=== PATIENT | male | born 1985 | race Caucasian/White ===

== ENCOUNTER 2021-06-15 00:40 | Emergency (ER) | payer OTHER, SELFPAY ==
[2021-06-15 00:49] VITALS: BP 130/80; BP 145/91; PULSE 71; PULSE 72; RESP 16; TEMP 36.8; O2SAT 97; O2SAT 98; BMI 25.1
[2021-06-15 01:10] LABS: MANUAL DIFF FLAG NO
[2021-06-15] MEDS: ondansetron HCL 4 MG/2 ML VIAL IVPUSH (01:10)
[2021-06-15 01:11] LABS: Basophils Percent Auto 0.4 % (0-2); Hematocrit 40.9 % (42-52); Hemoglobin 14.4 g/dl (14.0-18.0); Imm Gran Abs Auto 0.03 X10*3/uL (0.00-0.03); Imm Gran Pct Auto 0.4 % (0.0-0.4); Lymphocytes Absolute Auto 0.6 X10*3/uL (1.2-4.9); Lymphocytes Percent Auto 8.6 % (20-40); Mean Corpuscular HGB Conc 35.2 g/dl (31.0-36.0); Mean Corpuscular Hemoglobin 30.4 pg (27.0-33.0); Mean Corpuscular Volume 86.5 fL (80-98); Mean Platelet Volume 9.5 fL (9.4-12.4); Monocytes Absolute Auto 0.4 X10*3/uL (0.1-1.2); Monocytes Percent Auto 4.7 % (2-11); Neutrophils Absolute Auto 6.4 X10*3/uL (2.0-8.3); Neutrophils Percent Auto 85.9 % (45-73); Platelet Count 172 X10*3/uL (160-400); Red Blood Count 4.73 X10*6/uL (4.60-5.80); White Blood Count 7.5 X10*3/uL (4.8-10.8)
--- NOTE | 2021-06-15 01:21 | PC.NURSE ---
IV inserted. Labs drawn. Seizure pads in place. MD aware of elevated CIWA score (18). Awaiting primary MD avila.
[2021-06-15 01:26] LABS: Ethanol < 10 mg/dL
[2021-06-15 01:31] LABS: Alanine Aminotransferase 30 U/L (0-40); Albumin Level 4.5 g/dL (3.5-5.0); Alkaline Phosphatase 74 U/L (39-117); Anion Gap 19 (12-20); Aspartate Amino Transferase 50 U/L (5-37); Bilirubin Direct 0.5 mg/dL (0.0-0.5); Bilirubin Total 1.1 mg/dL (0.0-1.0); Blood Urea Nitrogen 10 mg/dL (9-16); Calcium 9.5 mg/dL (8.4-10.2); Carbon Dioxide 24 mmol/L (22-29); Chloride 106 mmol/L (96-108); Creatinine Clr Calc Pharmacy 120.1; Estimated Glomerular Filt Rate > 60; Glucose Random 131 mg/dL (60-115); Lipase 15 U/L (8-78); Potassium 4.5 mmol/L (3.3-5.1); Sodium 144 mmol/L (135-145); Total Protein 7.5 g/dL (6.5-8.0)
[2021-06-15 01:33] LABS: Lactic Acid 1.9 mmol/L (0.5-2.0)
--- NOTE | 2021-06-15 01:37 | PC.NURSE ---
at bedside for primary eval. Pt reporting to MD that his severe tremors are normal for him. Per pt, pt is concerned that his s/sx are r/t recent addition of Zoloft to daily medications. Pt reports being on Zoloft for 3 weeks now, notified provider of feeling unwell and was advised to go to the ER for an eval. Per MD, plan for Covid swab and to await lab results.
--- NOTE | 2021-06-15 01:49 | ED.NAVMDI ---
HPI - Nausea/Vomiting/Diarrhea General Chief complaint: Nausea/Vomiting/Diarrhea Stated complaint: NAUSEA Time Seen by Provider: 06/15/21 01:09 Source: patient Mode of arrival: EMS History of Present Illness HPI Narrative: 35-year-old male who is brought in by EMS for complaints anxiety, nausea, and overall not feeling well due to what he feels maybe his Zoloft prescription which he has been taking for 3 weeks. Patient states he used to take Ativan but it has been over 10 years and states that he does drink alcohol in his last drink was approximately 1 week ago. As patient was noted to be significantly tremulous on arrival he was questioned regarding this and states that it is familial and that his trembling is something that he has at baseline as well as his noted speech pattern. He states that he has abstained from alcohol before and has never suffered from seizures. At this time he denies any headache, tactile disturbances, visual disturbances, dizziness, shortness of breath, chest pain/palpitations, fever/chills and denies any diarrhea. Related Data Allergies Allergy/AdvReac Type Severity Reaction Status Date / Time No Known Allergies Allergy Verified 06/15/21 00:58 Review of Systems Review of Systems: Pertinent positives and negatives as stated in HPI 10 point review of systems is otherwise negative. PMFSH Past Medical History Source: nursing notes reviewed Social History Social History Advance Directives: No Advance Directives Information Provided: No Physical Exam Vital Signs: Vital Signs: Last Vital Signs Temp 98.3 F 06/15/21 00:49 Pulse 81 06/15/21 03:42 Resp 16 06/15/21 03:42 BP 147/85 H 06/15/21 03:42 Pulse Ox 97 06/15/21 03:42 Body Mass Index 25.1 VITAL SIGNS: Reviewed. GENERAL: Well developed, well nourished, in no acute distress. HEAD: Normocephalic/atraumatic EYES: PERRLA, EOMI intact without pain, no nystagmus EARS: Ext canals without abnormality, TMs non-bulging and non-erythematous NOSE: Nares patent bilateral OROPHARYNX: no oral lesions noted, posterior pharynx clear LUNGS: Normal breath sounds. No adventitious sounds or accessory muscle use. SpO2<97> CARDIOVASCULAR: Regular rate and rhythm without noted murmurs ABDOMEN: Soft, non-tender, non-distended with bowel sounds. MUSCULOSKELETAL: No tenderness, deformities, or effusions noted on gross inspection. EXTREMITIES: No cyanosis, clubbing or edema. SKIN: Inspection of the skin reveals no rashes, diaphoresis NEUROLOGIC: Alert and oriented x 4. Strength and sensation to light touch were grossly intact x 4, patient is noted to be significantly tremulous, there is no nystagmus Course Course Course Narrative: 35-year-old male with history and clinical presentation suggestive of anxiety and possible medication related symptoms, will evaluate for electrolyte/infection/anemia etiologies. Review of all investigations otherwise negative for acute findings. All results were discussed with the patient at bedside and he was encouraged to follow-up with his primary care provider. Patient is noted to tolerate oral intake without difficulty. MDM - Nausea/Vomiting/Diarrhea Lab Data Result diagrams: 06/15/21 01:03 06/15/21 01:03 Labs: Lab Results 06/15/21 06/15/21 06/15/21 Range/Units 01:03 01:03 01:03 WBC 7.5 (4.8-10.8) X10*3/uL RBC 4.73 (4.60-5.80) X10*6/uL Hgb 14.4 (14.0-18.0) g/dl Hct 40.9 L (42-52) % MCV 86.5 (80-98) fL MCH 30.4 (27.0-33.0) pg MCHC 35.2 (31.0-36.0) g/dl RDW 12.0 (11.0-16.0) % Plt Count 172 (160-400) X10*3/uL MPV 9.5 (9.4-12.4) fL Immature Gran % (Auto) 0.4 (0.0-0.4) % Neut % (Auto) 85.9 H (45-73) % Lymph % (Auto) 8.6 L (20-40) % [place] % (Auto) 4.7 (2-11) % Eos % (Auto) 0.0 (0-4) % Baso % (Auto) 0.4 (0-2) % Lymph # (Auto) 0.6 L (1.2-4.9) X10*3/uL [place] # (Auto) 0.4 (0.1-1.2) X10*3/uL Eos # (Auto) 0.0 (0.0-0.4) X10*3/uL Baso # (Auto) 0.0 (0.0-0.2) X10*3/uL Abs Immat Gran (auto) 0.03 (0.00-0.03) X10*3/uL Absolute Neuts (auto) 6.4 (2.0-8.3) X10*3/uL Absolute Nucleated RBC 0.000 (0.0-0.012) X10*3/uL Nucleated RBC % (auto) 0.0 (0.0-0.2) /100WBC Sodium 144 (135-145) mmol/L Potassium 4.5 (3.3-5.1) mmol/L Chloride 106 (96-108) mmol/L Carbon Dioxide 24 (22-29) mmol/L Anion Gap 19 (12-20) BUN 10 (9-16) mg/dL Creatinine 0.85 (0.5-1.4) mg/dL Estim Creat Clear Calc 120.1 Estimated GFR > 60 Random Glucose 131 H (60-115) mg/dL Lactic Acid (0.5-2.0) mmol/L Calcium 9.5 (8.4-10.2) mg/dL Total Bilirubin 1.1 H (0.0-1.0) mg/dL Direct Bilirubin 0.5 (0.0-0.5) mg/dL AST 50 H (5-37) U/L ALT 30 (0-40) U/L Alkaline Phosphatase 74 (39-117) U/L Total Protein 7.5 (6.5-8.0) g/dL Albumin 4.5 (3.5-5.0) g/dL Lipase 15 (8-78) U/L Urine Color Urine Appearance Urine pH (5.0-8.0) Ur Specific [place] (1.005-1.025) Urine Protein (NEG-TRACE) MG/DL Urine Glucose (UA) (NEG) MG/DL Urine Ketones (NEG) MG/DL Urine Blood (NEG) Urine Nitrite (NEG) Ur Leukocyte Esterase (NEG) Ethyl Alcohol < 10 mg/dL COVID-19 ([facility]IA) (Negative) COVID-19 Clin Com 06/15/21 06/15/21 06/15/21 Range/Units 01:14 01:45 04:52 WBC (4.8-10.8) X10*3/uL RBC (4.60-5.80) X10*6/uL Hgb (14.0-18.0) g/dl Hct (42-52) % MCV (80-98) fL MCH (27.0-33.0) pg MCHC (31.0-36.0) g/dl RDW (11.0-16.0) % Plt Count (160-400) X10*3/uL MPV (9.4-12.4) fL Immature Gran % (Auto) (0.0-0.4) % Neut % (Auto) (45-73) % Lymph % (Auto) (20-40) % [place] % (Auto) (2-11) % Eos % (Auto) (0-4) % Baso % (Auto) (0-2) % Lymph # (Auto) (1.2-4.9) X10*3/uL [place] # (Auto) (0.1-1.2) X10*3/uL Eos # (Auto) (0.0-0.4) X10*3/uL Baso # (Auto) (0.0-0.2) X10*3/uL Abs Immat Gran (auto) (0.00-0.03) X10*3/uL Absolute Neuts (auto) (2.0-8.3) X10*3/uL Absolute Nucleated RBC (0.0-0.012) X10*3/uL Nucleated RBC % (auto) (0.0-0.2) /100WBC Sodium (135-145) mmol/L Potassium (3.3-5.1) mmol/L Chloride (96-108) mmol/L Carbon Dioxide (22-29) mmol/L Anion Gap (12-20) BUN (9-16) mg/dL Creatinine (0.5-1.4) mg/dL Estim Creat Clear Calc Estimated GFR Random Glucose (60-115) mg/dL Lactic Acid 1.9 (0.5-2.0) mmol/L Calcium (8.4-10.2) mg/dL Total Bilirubin (0.0-1.0) mg/dL Direct Bilirubin (0.0-0.5) mg/dL AST (5-37) U/L ALT (0-40) U/L Alkaline Phosphatase (39-117) U/L Total Protein (6.5-8.0) g/dL Albumin (3.5-5.0) g/dL Lipase (8-78) U/L Urine Color YELLOW Urine Appearance CLEAR Urine pH 6.0 (5.0-8.0) Ur Specific [place] >= 1.030 H (1.005-1.025) Urine Protein 1+ H (NEG-TRACE) MG/DL Urine Glucose (UA) NEG (NEG) MG/DL Urine Ketones 15 (NEG) MG/DL Urine Blood NEG (NEG) Urine Nitrite NEG (NEG) Ur Leukocyte Esterase NEG (NEG) Ethyl Alcohol mg/dL COVID-19 (KIA) Negative (Negative) COVID-19 Clin Com See Note Discharge Plan Discharge Clinical Impression: Anxiety, Gastroenteritis Patient Disposition: Home, Self-Care Instructions: Gastroenteritis (ED), Anxiety (ED) Additional Instructions: Please follow-up with your primary care provider today for re-evaluation and further outpatient management. Return to the ER for acute worsening of symptoms.
[2021-06-15 02:22] LABS: COVID-19 Test Negative (Negative); IDNOW Serial# 9DD0AD1C
[2021-06-15 03:42] VITALS: BP 147/85; PULSE 81; RESP 16; O2SAT 97
--- NOTE | 2021-06-15 04:27 | PC.NURSE ---
PT is tolerating solid foods and liquids by mouth. PT is having difficulty providing urine sample.
--- NOTE | 2021-06-15 04:42 | PC.NURSE ---
Pt ambulating to the bathroom to provide urine sample with assistance by MAURI Pacheco.
[2021-06-15 05:03] LABS: Appearance Urine CLEAR; Color Urine YELLOW; Glucose Urine UA NEG (NEG); Leukocyte Esterase Urine NEG (NEG); Nitrite Urine NEG (NEG); Specific Gravity - Urine >= 1.030 (1.005-1.025); UACC Culture Trigger NO; Urine Blood NEG (NEG); Urine Ketones 15 MG/DL (NEG); Urine Protein 1+ MG/DL (NEG-TRACE)
[2021-06-15 05:23] LABS: Calcium Oxalate Crystals Urine TRACE /LPF; Mucus Urine 3+ /LPF; RBC Urine 0-2 /HPF (0); Renal Epithelial Cells Urine TRACE /LPF; Squamous Epithelial Cell Urine 1+ /LPF; WBC Urine 0-2 /HPF (0-4)
[2021-06-15 05:24] LABS: Oval Fat Bodies Urine NOTED
[2021-06-15 05:40] VITALS: BP 160/78; PULSE 90; RESP 18; O2SAT 97
== END 2021-06-15 05:42 | disposition home or self-care (01) ==
PROVIDERS: Emergency Provider Student in an Organized Health Care Education/Training Program
DX: K52.9 Noninfective gastroenteritis and colitis, unspecified (principal); F41.9 Anxiety disorder, unspecified; Z79.899 Other long term (current) drug therapy; Z20.822 Contact with and (suspected) exposure to COVID-19
CPT/HCPCS: 36415; 80048; 80076; 81001; 81003; 82077; 83605; 83690; 85025; 87635; 96374; 99284; J2405

== ENCOUNTER 2022-12-12 10:43 | Observation (INO) | payer OTHER, SELFPAY ==
--- NOTE | ~2022-12-12 | US_ITS ---
EXAMINATION: US ABDOMEN LIMITED CLINICAL INFORMATION: Pancreatitis.. COMPARISON: CT abdomen and pelvis 12/12/2022 TECHNIQUE: Real-time imaging of the right upper quadrant abdominal viscera. FINDINGS: PANCREAS: The entire head and the body the pancreas is echogenic. The tail is obscured by overlying gas. LIVER: The liver is enlarged in size measuring 18 cm. The liver contour is normal. Parenchymal echogenicity is increased. No focal hepatic lesion. There is no intrahepatic biliary duct dilatation seen. GALLBLADDER: Normal. The gallbladder is physiologically distended without evidence of stones, sludge, polyps, wall thickening or pericholecystic fluid. COMMON BILE DUCT: Normal in caliber measuring 0.2 cm in diameter. RIGHT KIDNEY: Normal. No hydronephrosis. No renal calculi or focal parenchymal lesions. The kidney measures 10.6 cm in maximum dimension. FREE FLUID: None. US/US abdomen limited IMPRESSION: 1. Echogenic pancreas likely. The findings are concordant with CT consistent with pancreatitis. 2. Mild hepatomegaly. 3. Visualized gallbladder, CBD and right kidney is unremarkable.
--- NOTE | ~2022-12-12 | CT_ITS ---
EXAMINATION: CT ABDOMEN AND PELVIS WITH CONTRAST CLINICAL INFORMATION: Right lower quadrant tenderness with question of appendicitis. COMPARISON: None available. TECHNIQUE: Multidetector volumetric images were obtained from the superior aspect of the liver through the pubic symphysis following administration 85 mL of Omnipaque 350 intravenous contrast. Sagittal and coronal reformatted images were obtained on the technologist's workstation. Oral Contrast: No. This CT examination was performed using dose optimization techniques as appropriate, variously including the following: *Automated exposure control. *Adjustment of mA and/or kV according to patient size (this includes techniques or standardized protocols for targeted exams where dose is matched to indication/reason for exam; i.e. extremities or head). *Use of iterative reconstruction technique. DLP: 511 mGy-cm FINDINGS: LUNG BASES: The visualized lung bases are unremarkable. LIVER, GALLBLADDER, AND BILIARY TREE: The liver is enlarged at 19.4 cm in cephalocaudad dimension. Attenuation is most likely decreased suggesting hepatic steatosis. No focal hepatic lesion or biliary ductal dilatation is present. The gallbladder is unremarkable with no evidence of radiopaque gallstones, gallbladder wall thickening, or obvious pericholecystic inflammatory changes. PANCREAS: Pancreas is grossly abnormal with marked edema present around the pancreatic head with fluid extending into both anterior pararenal spaces and the colonic gutter and lateral conal fascia on the right. Findings suggest acute pancreatitis. No pancreatic ductal dilatation or stones are seen. A well encapsulated fluid collection or pseudocyst is not seen. SPLEEN: Unremarkable. ADRENAL GLANDS: Unremarkable. KIDNEYS AND URETERS: The kidneys are normal in size, shape, and attenuation. There is a benign left lower pole Bosniak class I cyst present . No additional imaging or followup. No solid renal masses. No hydronephrosis, hydroureter, or calculi seen. No perinephric stranding. BLADDER: Unremarkable. GASTROINTESTINAL TRACT: The small and large bowel are unremarkable. The appendix is unremarkable. ABDOMINAL WALL: No significant hernia is appreciated. There has been prior right abdominal wall surgery with clips. LYMPH NODES: Normal. VASCULAR: Unremarkable. PELVIC VISCERA: The prostate and seminal vesicles are unremarkable. OSSEOUS STRUCTURES: Unremarkable. CT/CT abdomen pelvis w IV con IMPRESSION: 1. Findings are consistent with acute pancreatitis with peripancreatic edema and fluid extending into both anterior pararenal spaces and the right colonic gutter and lateral conal fascia. 2. Enlarged fatty liver. 3. Normal appendix. Fleischner guidelines were followed. This critical result was discussed with Dr. Martinez at 6:11 PM on the day of the exam and it was ascertained that the content and urgency of the report was understood at the time of direct communication.
[2022-12-12 11:00] VITALS: BP 128/85; PULSE 94; RESP 18; TEMP 36.7; O2SAT 99; BMI 26.6
[2022-12-12 11:12] LABS: MANUAL DIFF FLAG NO
[2022-12-12 11:19] LABS: Basophils Percent Auto 0.2 % (0-2); Eosinophils Absolute Auto 0.1 X10*3/uL (0.0-0.4); Eosinophils Percent Auto 0.7 % (0-4); Hematocrit 34.7 % (42.0-52.0); Hemoglobin 11.8 g/dl (14.0-18.0); Imm Gran Abs Auto 0.11 X10*3/uL (0.00-0.03); Imm Gran Pct Auto 1.2 % (0.0-0.4); Lymphocytes Absolute Auto 0.6 X10*3/uL (1.2-4.9); Lymphocytes Percent Auto 6.2 % (20-40); Mean Corpuscular Hemoglobin 31.6 pg (27.0-33.0); Monocytes Percent Auto 10.5 % (2-11); Neutrophils Absolute Auto 7.6 x10*3/uL (2.0-8.3); Neutrophils Percent Auto 81.2 % (45-73); Red Blood Count 3.73 X10*6/uL (4.60-5.80); Red Cell Distribution Width 13.4 % (11.0-16.0); White Blood Count 9.4 X10*3/uL (4.8-10.8)
[2022-12-12 11:33] LABS: Alanine Aminotransferase 71 U/L (0-40); Albumin Level 3.1 g/dL (3.5-5.0); Alkaline Phosphatase 138 U/L (39-117); Anion Gap 12 (12-20); Aspartate Amino Transferase 60 U/L (5-37); Bilirubin Total 4.1 mg/dL (0.0-1.0); Blood Urea Nitrogen 15 mg/dL (9-16); Calcium 7.8 mg/dL (8.4-10.2); Carbon Dioxide 28 mmol/L (22-29); Chloride 99 mmol/L (96-108); Creatinine Clr Calc Pharmacy 84.1; Estimated Glomerular Filt Rate > 60; Glucose Random 176 mg/dL (60-115); Potassium 3.2 mmol/L (3.3-5.1); Sodium 136 mmol/L (135-145); Total Protein 5.9 g/dL (6.5-8.0)
[2022-12-12 11:34] LABS: COVID-19 Test Negative (Negative); IDNOW Serial# 08D9AD1C
[2022-12-12 11:48] LABS: Mean Platelet Volume 11.1 fL (9.4-12.4); Platelet Count 85 X10*3/uL (160-400)
[2022-12-12 13:54] VITALS: BP 139/88; PULSE 105; RESP 16; O2SAT 98
[2022-12-12 15:05] VITALS: BP 139/92; PULSE 100; RESP 16; TEMP 36.9; O2SAT 98
[2022-12-12 15:10] LABS: Appearance Urine Clear; Color Urine Orange; Glucose Urine UA 100 mg/dL (Negative); Leukocyte Esterase Urine Small (1+) (Negative); Nitrite Urine Positive (Negative); PH 5.5 (5.0-9.0); Specific Gravity - Urine >= 1.030 (1.005-1.025); UMIC TRIGGER UACC YES; Urine Blood Negative (Negative); Urine Ketones Trace mg/dL (Negative); Urine Protein 100 (2+) mg/dL (Neg-Trace)
[2022-12-12 15:44] LABS: Bacteria Urine 1+ (None Seen); RBC Urine 0-2 /HPF (0-2); UACC Culture Trigger YES; WBC Urine 0-5 /HPF (0-5)
--- NOTE | 2022-12-12 15:44 | ED_ITS ---
HPI - Abdominal Pain General Chief Complaint: Abdominal Pain Stated Complaint: Abd pain Time Seen by Provider: 12/12/22 15:25 Source: patient Mode of arrival: ambulatory Limitations: no limitations History of Present Illness MD elicited complaint: abdominal pain Pertinent past history: none Onset (ago): day(s) (3) Pain Consistency: intermittent Location: epigastric, RUQ and LLQ Severity: moderate Quality: sharp Radiation: none Migration to: no migration Exacerbating factors: eating and movement Relieving factors: nothing Related Data Allergies Allergy/AdvReac Type Severity Reaction Status Date / Time No Known Allergies Allergy Verified 06/15/21 00:58 [facility] Social History Social History Advance Directives: No Advance Directives Information Provided: Yes Physical Exam ED Vital Signs: Vital Signs - 24 hr 12/12/22 11:00 12/12/22 13:54 12/12/22 15:05 Temperature 98.1 F 98.4 F Pulse Rate 94 105 H 100 Respiratory Rate 18 16 16 Blood Pressure 128/85 139/88 139/92 H Pulse Oximetry 99 98 98 Oxygen Delivery Method Room Air Room Air Room Air BMI result Body Mass Index 26.6 GEN: Well developed, no acute distress, alert, oriented HEENT: Normocephalic, atraumatic, normal external ears, nose appears normal, no oropharyngeal edema or exudates Eyes: Normal to appearance Neck: Supple, no lymphadenopathy Respiratory: Talks in complete sentences, no respiratory distress, clear to auscultation bilaterally Cardiovascular: Regular rate and rhythm, no murmurs rubs or gallops Abdomen: Mildly distended, tender in the right lower quadrant without rebound or guarding Back: No CVA tenderness Extremities: No clubbing cyanosis or edema Neurologic: No focal neurologic deficits, cranial nerves 2-12 intact, strength is 5/5 bilaterally, gait normal Skin: No rash Course Course Course Narrative: 37-year-old male presents with abdominal pain. On examination he had tenderness specifically in the right lower quadrant. This current surrounding for acute appendicitis. Patient will have routine laboratory analysis, imaging studies including CT scan of the abdomen. Patient's current pain level is a 2/10. He is not requesting analgesics at this time Reevaluation(s) Reevaluation #1: CT scan looks like pancreatitis however his lipase is normal. Does have an elevated bilirubin. This is suggesting that he may have a choledocholithiasis. Will order ultrasound to follow up to get better imaging of the biliary tree. I discussed results with the patient. He agrees with our treatment plan at this time Time: 18:20 Reevaluation #2: patient aware of results, admit at this time. Time: 19:55 Medical Decision Making Medical Decision Making [facility] Narrative: Differential diagnosis includes: see below. Abdominal exam without peritoneal signs. No evidence of acute abdomen at this time. Well appearing. Low suspicion for acute hepatobiliary disease (includng acute cholecystitis), acute pancreatitis, PUD (including perforation), acute infectious processes (pneumonia, hepatitis, pyelonephritis), acute appendicitis, vascular catastrophe, bowel obstruction or viscus perforation. Presentation not consistent with other acute, emergent causes of abdominal pain at this time. Plan: labs, UA, CT AP, pain control, serial reassessment Differential Diagnosis Differential Diagnoses: The differential diagnosis associated with the presentation includes (Appendicitis, cholecystitis, diverticulitis, colitis, mesenteric adenitis, IBD, IBS, gastroenteritis) Admission/Observation Consideration of admission/observation: Escalation of care including ad mission/observation considered Lab Data [facility] Lab Attestation statement: I reviewed the patient's lab results. 12/12/22 11:07 12/12/22 11:07 Labs: Lab Results 12/12/22 12/12/22 12/12/22 Range/Units 11:05 11:07 11:07 WBC 9.4 (4.8-10.8) X10*3/uL RBC 3.73 L (4.60-5.80) X10*6/uL Hgb 11.8 L (14.0-18.0) g/dl Hct 34.7 L (42.0-52.0) % MCV 93.0 (80.0-98.0) fL MCH 31.6 (27.0-33.0) pg MCHC 34.0 (31.0-36.0) g/dl RDW 13.4 (11.0-16.0) % Plt Count 85 L (160-400) X10*3/uL MPV 11.1 (9.4-12.4) fL Immature Gran % (Auto) 1.2 H (0.0-0.4) % Neut % (Auto) 81.2 H (45-73) % Lymph % (Auto) 6.2 L (20-40) % [place] % (Auto) 10.5 (2-11) % Eos % (Auto) 0.7 (0-4) % Baso % (Auto) 0.2 (0-2) % Lymph # (Auto) 0.6 L (1.2-4.9) X10*3/uL [place] # (Auto) 1.0 (0.1-1.2) X10*3/uL Eos # (Auto) 0.1 (0.0-0.4) X10*3/uL Baso # (Auto) 0.0 (0.0-0.2) X10*3/uL Abs Immat Gran (auto) 0.11 H (0.00-0.03) X10*3/uL Absolute Neuts (auto) 7.6 (2.0-8.3) x10*3/uL Absolute Nucleated RBC 0.000 (0.0-0.012) X10*3/uL Nucleated RBC % (auto) 0.0 (0.0-0.2) /100WBC Sodium 136 (135-145) mmol/L Potassium 3.2 L D (3.3-5.1) mmol/L Chloride 99 (96-108) mmol/L Carbon Dioxide 28 (22-29) mmol/L Anion Gap 12 (12-20) BUN 15 (9-16) mg/dL Creatinine 1.19 (0.5-1.4) mg/dL Estim Creat Clear Calc 84.1 Estimated GFR > 60 Random Glucose 176 H (60-115) mg/dL Calcium 7.8 L D (8.4-10.2) mg/dL Total Bilirubin 4.1 H (0.0-1.0) mg/dL AST 60 H (5-37) U/L ALT 71 H (0-40) U/L Alkaline Phosphatase 138 H (39-117) U/L Total Protein 5.9 L (6.5-8.0) g/dL Albumin 3.1 L (3.5-5.0) g/dL Triglycerides 147 mg/dL Lipase 71 (8-78) U/L Urine Color Urine Appearance Urine pH (5.0-9.0) Ur Specific [place] (1.005-1.025) Urine Protein (Neg-Trace) mg/dL Urine Glucose (UA) (Negative) mg/dL Urine Ketones (Negative) mg/dL Urine Blood (Negative) Urine Nitrite (Negative) Ur Leukocyte Esterase (Negative) Urine RBC (0-2) /HPF Urine WBC (0-5) /HPF Ur Squamous Epith Cells Urine Bacteria (None Seen) Epithelial Casts Hyaline Casts COVID-19 (KIA) Negative (Negative) COVID-19 Clin Com See Note 12/12/22 Range/Units 14:35 WBC (4.8-10.8) X10*3/uL RBC (4.60-5.80) X10*6/uL Hgb (14.0-18.0) g/dl Hct (42.0-52.0) % MCV (80.0-98.0) fL MCH (27.0-33.0) pg MCHC (31.0-36.0) g/dl RDW (11.0-16.0) % Plt Count (160-400) X10*3/uL MPV (9.4-12.4) fL Immature Gran % (Auto) (0.0-0.4) % Neut % (Auto) (45-73) % Lymph % (Auto) (20-40) % [place] % (Auto) (2-11) % Eos % (Auto) (0-4) % Baso % (Auto) (0-2) % Lymph # (Auto) (1.2-4.9) X10*3/uL [place] # (Auto) (0.1-1.2) X10*3/uL Eos # (Auto) (0.0-0.4) X10*3/uL Baso # (Auto) (0.0-0.2) X10*3/uL Abs Immat Gran (auto) (0.00-0.03) X10*3/uL Absolute Neuts (auto) (2.0-8.3) x10*3/uL Absolute Nucleated RBC (0.0-0.012) X10*3/uL Nucleated RBC % (auto) (0.0-0.2) /100WBC Sodium (135-145) mmol/L Potassium (3.3-5.1) mmol/L Chloride (96-108) mmol/L Carbon Dioxide (22-29) mmol/L Anion Gap (12-20) BUN (9-16) mg/dL Creatinine (0.5-1.4) mg/dL Estim Creat Clear Calc Estimated GFR Random Glucose (60-115) mg/dL Calcium (8.4-10.2) mg/dL Total Bilirubin (0.0-1.0) mg/dL AST (5-37) U/L ALT (0-40) U/L Alkaline Phosphatase (39-117) U/L Total Protein (6.5-8.0) g/dL Albumin (3.5-5.0) g/dL Triglycerides mg/dL Lipase (8-78) U/L Urine Color [place] A Urine Appearance Clear Urine pH 5.5 (5.0-9.0) Ur Specific [place] >= 1.030 H (1.005-1.025) Urine Protein 100 (2+) H (Neg-Trace) mg/dL Urine Glucose (UA) 100 H (Negative) mg/dL Urine Ketones Trace (Negative) mg/dL Urine Blood Negative (Negative) Urine Nitrite Positive H (Negative) Ur Leukocyte Esterase Small (1+) H (Negative) Urine RBC 0-2 (0-2) /HPF Urine WBC 0-5 (0-5) /HPF Ur Squamous Epith Cells Not Reportable Urine Bacteria 1+ (None Seen) Epithelial Casts Present Hyaline Casts Not Reportable COVID-19 (KIA) (Negative) COVID-19 Clin Com Independent Interpretation I performed an independent interpretation of an: Ultrasound ( US/US abdomen limited IMPRESSION: 1. Echogenic pancreas likely. The findings are concordant with CT consistent with pancreatitis. 2. Mild hepatomegaly. 3. Visualized gallbladder, CBD and right kidney is unremarkable. Dictated By:Davina Wellsnal S MDSigned By:<Electronically s) and CT Scan ( CT/CT abdomen pelvis w IV con IMPRESSION: 1. Findings are consistent with acute pancreatitis with peripancreatic edema and fluid extending into both anterior pararenal spaces and the right colonic gutter and lateral conal fascia. 2. Enlarged fatty liver. 3. Normal appendix. ) Radiology Impression Discussion of test interpretation with radiology: I have reviewed the radiologist's reading. Prescription Management I considered prescription management with: Pain Medication and Antibiotic Medications Administered Discontinued Medications Generic Name Dose Route Start Last Admin Trade Name Freq PRN Reason Stop Dose Admin Iohexol 100 ml 12/12/22 16:18 12/12/22 16:18 Iohexol 350 Mg/Ml 100 Ml Infus..Btl IV 12/12/22 16:19 85 ml ONCE ONE Administration Discharge Plan Discharge Clinical Impression: Abdominal pain, Acute pancreatitis Patient Disposition: Admitted As Inpatient Instructions: Abdominal Pain (ED) Referrals: Physician,Unknown J [Primary Care Provider] - 2 days
[2022-12-12 15:45] LABS: Epith (RTE) Cast Present
[2022-12-12] MEDS: iohexoL 350 MG/ML 100 ML INFUS..BTL IV (16:18)
[2022-12-12 16:48] LABS: Lipase 71 U/L (8-78)
--- NOTE | 2022-12-12 19:40 | PM.IMHP ---
History of Present Illness Date of Service: 12/12/22 Attending physician on admission: Mae Olivares Chief Complaint: I had ongoing abdominal pain and nausea This is a 37-year-old male with a past medical history as noted below presented to the emergency department with complaints of abdominal pain, worse to the right lower quadrant. On ED initial presentation patient reporting his pain was a 2/10 and he is still currently rating it at this. Patient does report almost daily alcohol use, up to 1 pt of whiskey daily however he reports that he quit drinking quarts almost a week ago?. Patient is noted to be tremulous at rest however he reports that he ?have issues with anxiety and may shake?. Currently, patient is denying chest pain, vomiting, diarrhea CT abdomen pelvis with contrast: 1. Findings are consistent with acute pancreatitis with peripancreatic edema and fluid extending into both anterior pararenal spaces and the right colonic gutter and lateral conal fascia. 2. Enlarged fatty liver. 3. Normal appendix. Abdominal ultrasound: 1. Echogenic pancreas likely. The findings are concordant with CT consistent with pancreatitis. 2. Mild hepatomegaly. 3. Visualized gallbladder, CBD and right kidney is unremarkable Initial laboratory results: HGB 11 0.8/34.7, platelets 85, K+ 3.2, random glucose 176, Ca 7.8, albumin 3.1 (Ca to albumin correction 8.5), AST/ALT 60/71, alk-phos 138. In the emergency department the above was performed The decision was made to admit patient for medical management. Review of Systems Review of Systems: A complete 12 point review of systems was performed and are negative if not noted in HPI. [facility] Medical History (Updated 12/12/22 @ 21:51 by ELVA Tinoco) Alcohol abuse Anxiety and depression GERD (gastroesophageal reflux disease) Family History (Updated 12/12/22 @ 21:52 by ELVA Tinoco) Mother Ovarian cancer Father Hypertension Surgical History (Updated 12/12/22 @ 21:53 by ELVA Tnioco) H/O adenoidectomy H/O inguinal hernia repair Social History (Updated 12/12/22 @ 21:54 by ELVA Tinoco) Alcohol intake: current Alcohol intake frequency: 3 or more drinks per day Alcohol type: hard liquor Patient Tobacco Use Status: Former Tobacco user Quit Date: Quit 3 years ago Use of substances other than those prescribed or required for medical reasons: No Advance Directives: No Advance Directives Information Provided: Yes Meds Allergies Allergy/AdvReac Type Severity Reaction Status Date / Time No Known Allergies Allergy Verified 06/15/21 00:58 Physical Exam Vital Signs and Narrative: Vital Signs: Last Vital Signs Temp 98.4 F 12/12/22 15:05 Pulse 100 12/12/22 15:05 Resp 16 12/12/22 15:05 BP 139/92 H 12/12/22 15:05 Pulse Ox 98 12/12/22 15:05 O2 Del Method Room Air 12/12/22 15:05 BMI result Body Mass Index 26.6 Const: Other: General: Appears stated age, in no acute distress, answers questions accurately and appropriately, tremulous at rest Skin: Warm and well perfused, not diaphoretic, no obvious lesions, bruises, open wounds or sores Cardiology: Regular rate and rhythm, no murmurs, rubs, gallops or clicks, no JVD or carotid bruits appreciated Respiratory: Lungs CTAB, no inspiratory wheezing, rales or rhonchi, no increased accessory muscle use noted Abdomen: Soft, rounded, tenderness noted to right upper/lower quadrant with palpation, bowel sounds active in all 4 quadrants, no abdominal guarding or Frederick sign Bilateral Upper extremities: Resting tremors noted. Bilateral lower Extremity: No pitting edema noted, no redness, tenderness or swelling noted to bilateral lower extremities. Neuro: Alert and oriented x3, no obvious focal deficits Psych: Poor eye contact, flat affect, follows commands, no agitation restlessness noted Results Labs 12/12/22 11:07 12/12/22 11:07 Labs: Laboratory Results - last 24 hr 12/12/22 12/12/22 12/12/22 11:05 11:07 11:07 MCV 93.0 MCH 31.6 MCHC 34.0 RDW 13.4 Plt Count 85 L MPV 11.1 Immature Gran % (Auto) 1.2 H Neut % (Auto) 81.2 H Lymph % (Auto) 6.2 L [place] % (Auto) 10.5 Eos % (Auto) 0.7 Baso % (Auto) 0.2 Lymph # (Auto) 0.6 L [place] # (Auto) 1.0 Eos # (Auto) 0.1 Baso # (Auto) 0.0 Abs Immat Gran (auto) 0.11 H Absolute Neuts (auto) 7.6 Absolute Nucleated RBC 0.000 Nucleated RBC % (auto) 0.0 Anion Gap 12 Estim Creat Clear Calc 84.1 Estimated GFR > 60 Random Glucose 176 H Calcium 7.8 L D Total Bilirubin 4.1 H AST 60 H ALT 71 H Alkaline Phosphatase 138 H Total Protein 5.9 L Albumin 3.1 L Lipase 71 Urine Color Urine Appearance Urine pH Ur Specific [place] Urine Protein Urine Glucose (UA) Urine Ketones Urine Blood Urine Nitrite Ur Leukocyte Esterase Urine RBC Urine WBC Ur Squamous Epith Cells Urine Bacteria Epithelial Casts Hyaline Casts COVID-19 ([facility]) Negative COVID-19 Clin Com See Note 12/12/22 14:35 MCV MCH MCHC RDW Plt Count MPV Immature Gran % (Auto) Neut % (Auto) Lymph % (Auto) [place] % (Auto) Eos % (Auto) Baso % (Auto) Lymph # (Auto) [place] # (Auto) Eos # (Auto) Baso # (Auto) Abs Immat Gran (auto) Absolute Neuts (auto) Absolute Nucleated RBC Nucleated RBC % (auto) Anion Gap Estim Creat Clear Calc Estimated GFR Random Glucose Calcium Total Bilirubin AST ALT Alkaline Phosphatase Total Protein Albumin Lipase Urine Color [place] A Urine Appearance Clear Urine pH 5.5 Ur Specific [place] >= 1.030 H Urine Protein 100 (2+) H Urine Glucose (UA) 100 H Urine Ketones Trace Urine Blood Negative Urine Nitrite Positive H Ur Leukocyte Esterase Small (1+) H Urine RBC 0-2 Urine WBC 0-5 Ur Squamous Epith Cells Not Reportable Urine Bacteria 1+ Epithelial Casts Present Hyaline Casts Not Reportable COVID-19 ([facility]) COVID-19 Clin Com Imaging Radiologist's Impressions: Impressions Abdomen/Pelvis CT 12/12/22 16:27 IMPRESSION: 1. Findings are consistent with acute pancreatitis with peripancreatic edema and fluid extending into both anterior pararenal spaces and the right colonic gutter and lateral conal fascia. 2. Enlarged fatty liver. 3. Normal appendix. Fleischner guidelines were followed. This critical result was discussed with Dr. Martinez at 6:11 PM on the day of the exam and it was ascertained that the content and urgency of the report was understood at the time of direct communication. Abdomen Ultrasound 12/12/22 18:35 IMPRESSION: 1. Echogenic pancreas likely. The findings are concordant with CT consistent with pancreatitis. 2. Mild hepatomegaly. 3. Visualized gallbladder, CBD and right kidney is unremarkable. Assessment and Plan (1) Acute pancreatitis: Status: Acute (2) Abdominal pain: Status: Acute (3) Transaminitis: Status: Acute (4) Alcohol abuse: Status: Acute Plan This is a 37-year-old male with a past medical history significant for anxiety depression, gastroesophageal reflux disease, alcohol abuse will be admitted for abdominal pain and transaminitis secondary to acute alcoholic pancreatitis. ACUTE MEDICAL ISSUES: Acute alcoholic pancreatitis Alcohol abuse Abdominal pain -patient reports that he has not had a drink of alcohol ?an almost a week? he reports a pt of blackberry pedrito almost daily prior. -patient is slightly tremulou, he denies any history of withdrawal and reports that his tremors is ?anxiety? -CT abdomen pelvis with contrast: 1. Findings are consistent with acute pancreatitis with peripancreatic edema and fluid extending into both anterior pararenal spaces and the right colonic gutter and lateral conal fascia. 2. Enlarged fatty liver. 3. Normal appendix. -Abdominal ultrasound: 1. Echogenic pancreas likely. The findings are concordant with CT consistent with pancreatitis. 2. Mild hepatomegaly. 3. Visualized gallbladder, CBD and right kidney is unremarkable. -Will obtain alcohol level. Triglycerides in range. -Patient not interested in detox at this time as he can ?quit any time? -NPO. IV fluids. Analgesics/antiemetics ordered. IV ppi. Folic acid, thiamine and multivitamin ordered. Transaminitis -AST/ALT 60/71, pulse 138. Likely related to above. Trend. Fatty liver -Incidental finding on CT abdomen/pelvis. Discussed with patient. -Patient should abstain from alcohol. Daily exercise also encouraged. Thrombocytopenia -Platelets 85. Likely from alcohol abuse/misuse. CHRONIC MEDICAL ISSUES: Anxiety and depression -patient reports that he calls has a counselor takes Ativan as needed however not frequently?. -monitor mood. Denies SI/HI. Gastroesophageal reflux disease -Previously taking oral PPI. Other: DVT prophylaxis-intermittent sequential boots. Hold off chemical DVT prophylaxis due to thrombocytopenia. Patient is a full code HCP/emergency contact is patient's father Nasim Olmos, Time Spent With Patient Time: Total time managing care of this patient today ____ minutes. Quality Stroke Does the patient have a stroke diagnosis?: No VTE Prior VTE?: No VTE Risk Level:: Medical - moderate - high VTE Device Contraindication: N/A - Device Ordered VTE Drug Contraindication: Treatment Not Indicated
[2022-12-12 19:46] LABS: Triglycerides 147 mg/dL
[2022-12-12 20:11] LABS: Ethanol < 10 mg/dL
[2022-12-12] MEDS: Docusate Sodium 100 MG CAPSULE PO (20:37)
[2022-12-12] MEDS: 0.9 % Sodium Chloride 1,000 ML 200 ML IVCONT (20:38)
[2022-12-12 22:33] VITALS: BP 150/96; PULSE 83; RESP 16; TEMP 37; O2SAT 97
[2022-12-13 01:31] VITALS: BP 135/92; PULSE 96; RESP 16; TEMP 36.2; O2SAT 97
[2022-12-13] MEDS: Potassium Chloride Packet 20 MEQ PACKET 40 MEQ PO ×2 (02:09→04:22)
[2022-12-13] MEDS: cefTRIAXone sodium 1 GM in 0.9 % Sodium Chloride 50 ML IV (02:09)
[2022-12-13 03:16] VITALS: BP 127/81; PULSE 100; RESP 16; TEMP 36.8; O2SAT 98
[2022-12-13] MEDS: 0.9 % Sodium Chloride 1,000 ML 200 ML IVCONT (04:22)
[2022-12-13 06:35] LABS: Hemoglobin 10.6 g/dl (14.0-18.0); Mean Corpuscular HGB Conc 34.2 g/dl (31.0-36.0); Mean Corpuscular Hemoglobin 31.6 pg (27.0-33.0); Mean Corpuscular Volume 92.5 fL (80.0-98.0); Mean Platelet Volume 11.3 fL (9.4-12.4); Red Blood Count 3.35 X10*6/uL (4.60-5.80)
[2022-12-13 06:36] LABS: Platelet Count 98 X10*3/uL (160-400); White Blood Count 7.8 X10*3/uL (4.8-10.8)
[2022-12-13 06:54] LABS: Cholesterol 280 mg/dL; HDL Cholesterol 23 mg/dL; Iron 28 mcg/dL (45-160); LDL Cholesterol Calculated 223 mg/dl; Percent Iron Saturation 23 % (15-50); Total Iron Binding Capacity 123 mcg/dL (228-428); Triglycerides 174 mg/dL; Unsaturated Iron Binding 95 ug/dL
[2022-12-13 07:06] LABS: Alanine Aminotransferase 53 U/L (0-40); Albumin Level 2.8 g/dL (3.5-5.0); Alkaline Phosphatase 110 U/L (39-117); Aspartate Amino Transferase 42 U/L (5-37); Bilirubin Total 3.4 mg/dL (0.0-1.0); Blood Urea Nitrogen 9 mg/dL (9-16); Calcium 7.7 mg/dL (8.4-10.2); Creatinine Clr Calc Pharmacy 126.7; Estimated Glomerular Filt Rate > 60; Glucose Random 89 mg/dL (60-115); Total Protein 5.2 g/dL (6.5-8.0)
[2022-12-13 07:23] LABS: Anion Gap 17 (12-20); Carbon Dioxide 22 mmol/L (22-29); Chloride 102 mmol/L (96-108); Potassium 3.7 mmol/L (3.3-5.1); Sodium 137 mmol/L (135-145)
[2022-12-13 07:32] VITALS: BP 128/79; PULSE 85; RESP 18; TEMP 36.5; O2SAT 100
[2022-12-13 07:34] LABS: Vitamin B12 1187 pg/mL (200-900)
[2022-12-13 07:56] LABS: Ferritin 2995 ng/mL (20-250)
[2022-12-13] MEDS: Docusate Sodium 100 MG CAPSULE PO (08:58)
[2022-12-13] MEDS: Folic Acid 1 MG TABLET PO (08:58)
[2022-12-13] MEDS: Thiamine HCL 100 MG TABLET PO (08:58)
--- NOTE | 2022-12-13 09:21 | PHA.MEDREC ---
Pharmacy Consult ? Medication Reconciliation Pharmacy has completed the medication reconciliation.
--- NOTE | 2022-12-13 09:21 | HO.PM.IMPN ---
Subjective Subjective Date of Service: 12/13/22 Interval History: f/u on acue pancreatitis has mild pain, no withdrawal symptom Physical Exam Vital Signs: Vital Signs: Last Vital Signs Temp 97.7 F 12/13/22 07:32 Pulse 85 12/13/22 07:32 Resp 18 12/13/22 07:32 BP 128/79 12/13/22 07:32 Pulse Ox 100 12/13/22 07:32 O2 Del Method Room Air 12/13/22 07:32 BMI result Body Mass Index 26.6 Const: Other: General: AO X 3, no acute distress Resp: CTA bilateral CVS: S1,S2,RRR GI: +BS, mild epig tenderness, Skin: No rash Neuro: motor grossly intact Psych: appropriate affect Objective Data Active Medications Docusate Sodium (Docusate Sodium 100 Mg Capsule) 100 mg PO BID [facility] Last Admin: 12/13/22 08:58 Dose: 100 mg Documented By: SHIREEN Folic Acid (Folic Acid 1 Mg Tablet) 1 mg PO DAILY [facility] Last Admin: 12/13/22 08:58 Dose: 1 mg Documented By: SHIREEN Hydromorphone HCl (Hydromorphone Hcl 0.5 Mg/0.5 Ml Syringe) 0.5 mg SUBCUT Q4H PRN; Protocol PRN Reason: Pain, Moderate (Pain Scale 4-6 Hydromorphone HCl (Hydromorphone Hcl 1 Mg/Ml Syringe) 1 mg IVPUSH Q4H PRN; Protocol PRN Reason: Pain, Severe (Pain Scale 7-10) Sodium Chloride (Ns) 1,000 mls @ 200 mls/hr IVCONT .Q5H [facility] Stop: 12/13/22 10:59 Last Admin: 12/13/22 04:22 Dose: 200 mls/hr Documented By: MIGNON Ceftriaxone Sodium 1 gm/ (Sodium Chloride) 50 mls @ 100 mls/hr IV Q24H [facility] Last Infusion: 12/13/22 02:43 Dose: 0 mls/hr Documented By: MIGNON Ondansetron HCl (Ondansetron Hcl 4 Mg/2 Ml Vial) 4 mg IVPUSH Q8H PRN PRN Reason: Nausea and Vomiting Senna (Sennosides 8.6 Mg Tablet) 17.2 mg PO BEDTIME PRN PRN Reason: Constipation Sodium Chloride (0.9 % Sodium Chloride Flush 3 Ml Syringe) 3 ml IVFLUSH QSHIFT [facility] Last Admin: 12/13/22 01:30 Dose: Not Given Documented By: MIGNON Non-Admin Reason: IV Running Thiamine HCl (Thiamine Hcl 100 Mg Tablet) 100 mg PO DAILY [facility] Last Admin: 12/13/22 08:58 Dose: 100 mg Documented By: SHIREEN Labs 12/13/22 05:27 12/13/22 05:27 Labs: Laboratory Results - last 24 hr 12/12/22 12/12/22 12/12/22 11:05 11:07 11:07 MCV 93.0 MCH 31.6 MCHC 34.0 RDW 13.4 Plt Count 85 L MPV 11.1 Immature Gran % (Auto) 1.2 H Neut % (Auto) 81.2 H Lymph % (Auto) 6.2 L [place] % (Auto) 10.5 Eos % (Auto) 0.7 Baso % (Auto) 0.2 Lymph # (Auto) 0.6 L [place] # (Auto) 1.0 Eos # (Auto) 0.1 Baso # (Auto) 0.0 Abs Immat Gran (auto) 0.11 H Absolute Neuts (auto) 7.6 Absolute Nucleated RBC 0.000 Nucleated RBC % (auto) 0.0 Anion Gap 12 Estim Creat Clear Calc 84.1 Estimated GFR > 60 Random Glucose 176 H Calcium 7.8 L D Iron TIBC % Saturation Unsat Iron Binding Ferritin Total Bilirubin 4.1 H AST 60 H ALT 71 H Alkaline Phosphatase 138 H Total Protein 5.9 L Albumin 3.1 L Triglycerides 147 Cholesterol LDL Cholesterol, Calc HDL Cholesterol Lipase 71 Vitamin B12 Folate Urine Color Urine Appearance Urine pH Ur Specific [place] Urine Protein Urine Glucose (UA) Urine Ketones Urine Blood Urine Nitrite Ur Leukocyte Esterase Urine RBC Urine WBC Ur Squamous Epith Cells Urine Bacteria Epithelial Casts Hyaline Casts Ethyl Alcohol < 10 COVID-19 ([facility]) Negative COVID-19 Clin Com See Note 12/12/22 12/13/22 12/13/22 14:35 05:27 05:27 MCV MCH MCHC RDW Plt Count MPV Immature Gran % (Auto) Neut % (Auto) Lymph % (Auto) [place] % (Auto) Eos % (Auto) Baso % (Auto) Lymph # (Auto) [place] # (Auto) Eos # (Auto) Baso # (Auto) Abs Immat Gran (auto) Absolute Neuts (auto) Absolute Nucleated RBC Nucleated RBC % (auto) Anion Gap 17 Estim Creat Clear Calc 126.7 Estimated GFR > 60 Random Glucose 89 Calcium 7.7 L Iron 28 L TIBC 123 L % Saturation 23 Unsat Iron Binding 95 Ferritin 2995 H Total Bilirubin 3.4 H AST 42 H ALT 53 H Alkaline Phosphatase 110 Total Protein 5.2 L Albumin 2.8 L Triglycerides 174 Cholesterol 280 LDL Cholesterol, Calc 223 HDL Cholesterol 23 Lipase Vitamin B12 1187 H Folate 12.0 Urine Color [place] A Urine Appearance Clear Urine pH 5.5 Ur Specific [place] >= 1.030 H Urine Protein 100 (2+) H Urine Glucose (UA) 100 H Urine Ketones Trace Urine Blood Negative Urine Nitrite Positive H Ur Leukocyte Esterase Small (1+) H Urine RBC 0-2 Urine WBC 0-5 Ur Squamous Epith Cells Not Reportable Urine Bacteria 1+ Epithelial Casts Present Hyaline Casts Not Reportable Ethyl Alcohol COVID-19 ([facility]) COVID-[employer] 12/13/22 05:27 MCV 92.5 MCH 31.6 MCHC 34.2 RDW 13.0 Plt Count 98 L MPV 11.3 Immature Gran % (Auto) Neut % (Auto) Lymph % (Auto) [place] % (Auto) Eos % (Auto) Baso % (Auto) Lymph # (Auto) [place] # (Auto) Eos # (Auto) Baso # (Auto) Abs Immat Gran (auto) Absolute Neuts (auto) Absolute Nucleated RBC 0.000 Nucleated RBC % (auto) 0.0 Anion Gap Estim Creat Clear Calc Estimated GFR Random Glucose Calcium Iron TIBC % Saturation Unsat Iron Binding Ferritin Total Bilirubin AST ALT Alkaline Phosphatase Total Protein Albumin Triglycerides Cholesterol LDL Cholesterol, Calc HDL Cholesterol Lipase Vitamin B12 Folate Urine Color Urine Appearance Urine pH Ur Specific [place] Urine Protein Urine Glucose (UA) Urine Ketones Urine Blood Urine Nitrite Ur Leukocyte Esterase Urine RBC Urine WBC Ur Squamous Epith Cells Urine Bacteria Epithelial Casts Hyaline Casts Ethyl Alcohol COVID-19 ([facility]) COVID-19 [employer] Com Microbiology Microbiology Results: Microbiology 12/12/22 14:33 Urine Culture - Final Urine clean catch - Urine richardson top No growth. Assessment and Plan (1) Transaminitis: Status: Acute (2) Abdominal pain: Status: Acute (3) Acute pancreatitis: Status: Acute (4) GERD (gastroesophageal reflux disease): Status: Acute (5) Anxiety and depression: Status: Acute Plan This is a 37-year-old male with a past medical history significant for anxiety depression, gastroesophageal reflux disease, alcohol abuse will be admitted for abdominal pain and transaminitis secondary to acute alcoholic pancreatitis. ACUTE MEDICAL ISSUES: Acute alcoholic pancreatitis seen on CT, normal lipase -advance diet to full liquid and observe, alcohol cessation marilyn, CARE team eval before dc Transaminitis -AST/ALT 60/71, pulse 138. Likely related to above. Trend. Fatty liver--d/t alcohol, cessation discussed Thrombocytopenia -Platelets 85. Likely from alcohol abuse/misuse. CHRONIC MEDICAL ISSUES: Anxiety and depression -patient reports that he calls has a counselor takes Ativan as needed however not frequently?. -monitor mood. Denies SI/HI. Gastroesophageal reflux disease -Previously taking oral PPI. Other: DVT prophylaxis-intermittent sequential boots. Hold off chemical DVT prophylaxis due to thrombocytopenia. Patient is a full code HCP/emergency contact is patient's father Nasim Olmos, consider dc later today Time Spent With Patient Time: Total time managing care of this patient today ____ minutes. Quality Stroke Does the patient have a stroke diagnosis?: No VTE Prior VTE?: No VTE Risk Level:: Medical - moderate - high VTE Device Contraindication: N/A - Device Ordered VTE Drug Contraindication: Treatment Not Indicated
[2022-12-13] MEDS: Omeprazole 20 MG CAPSULE.DR PO (10:12)
--- NOTE | 2022-12-13 14:15 | MHC.RECOVRN ---
This adjusto writer operator met w/ patient after receiving addiction consult. Patient was awake, alert, sitting up in bed. Patient reports drinks sporadically, patient reports sometimes drinks daily, to weekly, with 4 weeks intermittent recovery time. Patient could not quanitfy ETOH amount. Patient reports no hx of seizures, AVH. Patient reports no hx of treatment including medications for ETOH use, no hx of detox. Patient reports has been following with employee assistance program at job to see what services are available to him. Harm reduction, recovery resources reviewed. Patient verbalized understanding. Resources left at bedside, patient encouraged to call Addiciton/Recovery team with any questions/concerns. Patient declined recovery supports and SALINA at this time.
--- NOTE | 2022-12-13 14:46 | MHC.CM.PN ---
pt is independent had no previous covid vax has ride home dc plan home no servceis
[2022-12-13 15:39] VITALS: BP 133/65; PULSE 92; RESP 20; TEMP 36.9; O2SAT 97
--- NOTE | 2022-12-13 17:16 | PM.DS ---
DS: Providers Provider Date of Service: 12/13/22 Date of admission: 12/12/22 19:51 Primary care physician: Unknown Physician Consults: 12/13/22 09:26 Addiction Medicine Routine Consulting Provider: Addiction Covering Reason for consultation: alcohol dependence Has provider been notified: No DS: Diagnosis Discharge Diagnosis (1) Transaminitis: Status: Acute (2) Abdominal pain: Status: Acute (3) Acute pancreatitis: Status: Acute (4) GERD (gastroesophageal reflux disease): Status: Acute (5) Anxiety and depression: Status: Acute DS: Summary Hospital Course Hospital Course: Chief Complaint: I had ongoing abdominal pain and nausea This is a 37-year-old male with a past medical history as noted below presented to the emergency department with complaints of abdominal pain, worse to the right lower quadrant.? On ED initial presentation patient reporting his pain was a 2/10 and he is still currently rating it at this.? Patient does report almost daily alcohol use, up to 1 pt of whiskey daily however he reports that he quit drinking quarts almost a week ago?.? Patient is noted to be tremulous at rest however he reports that he ?have issues with anxiety and may shake?.? Currently, patient is denying chest pain, vomiting, diarrhea CT abdomen pelvis with contrast:? 1. Findings are consistent with acute pancreatitis with peripancreatic edema and fluid extending into both anterior pararenal spaces and the right colonic gutter and lateral conal fascia. 2. Enlarged fatty liver. 3. Normal appendix. Abdominal ultrasound: 1.? Echogenic pancreas likely. The findings are concordant with CT consistent with pancreatitis. 2.? Mild hepatomegaly. 3.? Visualized gallbladder, CBD and right kidney is unremarkable Initial laboratory results:? HGB 11 0.8/34.7, platelets 85, K+ 3.2, random glucose 176, Ca 7.8, albumin 3.1 (Ca to albumin correction 8.5), AST/ALT 60/71, alk-phos 138. In the emergency department the above was performed The decision was made to admit patient for medical management. Hospital course: He was admitted for pancreatitis as evident on CT but normal lipase, he was managed conservatively with hydration, pain medication and initally made NPO, the next day he was able to eat full liquid diet, followed by regular diet with no increase in pain. We discussed the need for complete absienence from alcohol and bring the point home he was seen by recovery team and offered resources in the [facility]. He fees comfortable going home t this time. Time Spent with Patient Time attestation: Total time managing care of this patient today ____ minutes. Discharge coordination time: Greater than 30 minutes Quality: Safe Use of Opioids Does Pt have an Active Cancer Diagnosis on the Problem List?: No Quality: Stroke Does the patient have a stroke diagnosis?: No Physical Exam Vital Signs: Vital Signs: Last Vital Signs Temp 98.4 F 12/13/22 15:39 Pulse 92 12/13/22 15:39 Resp 20 12/13/22 15:39 BP 133/65 12/13/22 15:39 Pulse Ox 97 12/13/22 15:39 O2 Del Method Room Air 12/13/22 15:39 BMI result Body Mass Index 26.6 Const: Other: General: AO X 3, no acute distress Resp: CTA bilateral CVS: S1,S2,RRR GI: +BS, ngligeable tenderness Skin: No rash Neuro: motor grossly intact Psych: appropriate affect DS: Data Data Completed and Pending Labs on day of discharge: Laboratory Results - last 24 hr 12/12/22 12/13/22 12/13/22 11:07 05:27 05:27 WBC RBC Hgb Hct MCV MCH MCHC RDW Plt Count MPV Absolute Nucleated RBC Nucleated RBC % (auto) Sodium 137 Potassium 3.7 Chloride 102 Carbon Dioxide 22 Anion Gap 17 BUN 9 Creatinine 0.79 Estim Creat Clear Calc 126.7 Estimated GFR > 60 Random Glucose 89 Calcium 7.7 L Iron 28 L TIBC 123 L % Saturation 23 Unsat Iron Binding 95 Ferritin 2995 H Total Bilirubin 3.4 H AST 42 H ALT 53 H Alkaline Phosphatase 110 Total Protein 5.2 L Albumin 2.8 L Triglycerides 147 174 Cholesterol 280 LDL Cholesterol, Calc 223 HDL Cholesterol 23 Vitamin B12 1187 H Folate 12.0 Ethyl Alcohol < 10 12/13/22 05:27 WBC 7.8 RBC 3.35 L Hgb 10.6 L Hct 31.0 L MCV 92.5 MCH 31.6 MCHC 34.2 RDW 13.0 Plt Count 98 L MPV 11.3 Absolute Nucleated RBC 0.000 Nucleated RBC % (auto) 0.0 Sodium Potassium Chloride Carbon Dioxide Anion Gap BUN Creatinine Estim Creat Clear Calc Estimated GFR Random Glucose Calcium Iron TIBC % Saturation Unsat Iron Binding Ferritin Total Bilirubin AST ALT Alkaline Phosphatase Total Protein Albumin Triglycerides Cholesterol LDL Cholesterol, Calc HDL Cholesterol Vitamin B12 Folate Ethyl Alcohol Discharge Plan Discharge Anticipated Discharge Date/Time: 12/13/22 17:19 Patient Disposition: Home, Self-Care Referrals: Physician,Unknown J [Primary Care Provider] - 2 days Discharge Medications: No Action omeprazole 20 mg capsule,delayed release(DR/EC) 20 mg PO DAILY@0630 Stand Alone Forms: Patient Portal Discharge page Care Plan Goals: Full reocvery from pancreatitis Health Concerns: alcohol dependence acute pancreatitis Plan of Treatment: Avoid alcohol at all cost, follow up with your primary care doctor in a week, call for appointment follow through with resources given by Recovery team to help you quit alcohol avoid fatter food for about a week Assessment: rosio mejia Patient Instructions: Abdominal Pain (ED)
[2022-12-14 15:48] LABS: Transferrin 99 mg/dL (188-341)
== END 2022-12-13 18:50 | disposition home or self-care (01) ==
LOC: HO.ED 19:56 → HO.EDOVER 20:23 → HO.S3 23:34
PROVIDERS: Admitting Provider Registered Nurse; Emergency Provider Emergency Medicine; Visit Provider Internal Medicine
DX: K85.90 Acute pancreatitis without necrosis or infection, unspecified (principal); K76.0 Fatty (change of) liver, not elsewhere classified; R74.01 Elevation of levels of liver transaminase levels; F10.20 Alcohol dependence, uncomplicated; D69.6 Thrombocytopenia, unspecified; K21.9 Gastro-esophageal reflux disease without esophagitis; F41.8 Other specified anxiety disorders; R10.31 Right lower quadrant pain; R10.13 Epigastric pain; R11.0 Nausea
CPT/HCPCS: 36415; 74177; 76705; 80053; 80061; 81001; 81003; 82077; 82607; 82728; 82746; 83540; 83690; 84466; 84478; 85025; 85027; 87040; 87086; 87635; 96361; 96365; 99221; 99285; J0696; Q9967